=== PATIENT | male | born 1960 | race Caucasian/White ===

== ENCOUNTER 2018-10-26 14:03 | Inpatient (IN) | payer MEDICAID ==
[~2018-10-26] VITALS: Ht 165.1 cm; Wt 79.8 kg
--- NOTE | 2018-10-26 14:15 | NUR ---
Henrietta ledbetter in [facility] - 10/26/18 at 1747 by NIMA Consent for CTA signed
[2018-10-26 14:34] VITALS: BP_SYST 152
[2018-10-26] MEDS ORDERED: NACL 0.9% 1,000 ML IV ONE ×2 (14:39→15:45)
[2018-10-26 15:05] LABS: BASOPHILS % (AUTO) 0.3 % (0.0-2.0); HEMATOCRIT 42.7 % (36-54); HEMOGLOBIN 14.7 g/dL (14.0-18.0); LYMPHOCYTES # (AUTO) 2.5 K/uL (1.0-5.5); MEAN CORPUSCULAR HEMOGLOBIN 31 pg (27-31); MEAN CORPUSCULAR HGB CONC 34 % (32-36); MEAN CORPUSCULAR VOLUME 91 fL (79.0-98.0); MONOCYTES % (AUTO) 8.3 % (1.7-9.3); NEUTROPHILS # (AUTO) 2.9 K/uL (1.8-7.7); NEUTROPHILS % (AUTO) 48.4 % (40.0-70.0); PLATELET COUNT (AUTO) 218 K/uL (130-430); RED BLOOD CELL COUNT(AUTO) 4.72 MIL/uL (4.2-6.2); RED CELL DISTRIBUTION WIDTH 12.8 % (9.0-15.0)
[2018-10-26 15:06] LABS: EOSINOPHILS # (AUTO) 0.1 K/uL (0.0-0.4); MONOCYTES # (AUTO) 0.5 K/uL (0.0-1.0)
--- NOTE | 2018-10-26 15:13 | NUR ---
Patient to ER bed 5 to gown for evaluation. Side rails up. Report given to Gilberto NESS.
[2018-10-26 15:14] LABS: CALCIUM 8.7 mg/dL (8.4-11.0); CREATININE 0.68 mg/dL (0.55-1.30); POTASSIUM 4.2 mmol/L (3.5-5.1)
[2018-10-26 15:15] LABS: PROTHROMBIN TIME 10.1 SECS (9.5-12.5)
[2018-10-26 15:19] LABS: ALBUMIN 3.6 g/dL (3.4-4.8); TOTAL BILIRUBIN 0.6 mg/dL (0.0-1.0)
--- NOTE | 2018-10-26 15:30 | NUR ---
ER at bedside examining patient.
--- NOTE | 2018-10-26 15:32 | NUR ---
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
[2018-10-26] MEDS ORDERED: MORPHINE 4 MG/ML INJ. SYRINGE IVP ONE (15:45)
--- NOTE | 2018-10-26 17:15 | NUR ---
Consent for CTA signed
[2018-10-26] MEDS ORDERED: IOHEXOL 100 ML IV ONE (17:43)
--- NOTE | 2018-10-26 17:46 | NUR ---
Patient transported to radiology via ambulation, accompanied by rad staff.
--- NOTE | 2018-10-26 18:00 | NUR ---
Returned from radiology, back to [facility].
--- NOTE | 2018-10-26 18:24 | NUR ---
Patient will be admitted to care of Dr. Chinchilla. Admitted to Med Surg unit. Will go to room 133A. Summary report printed. Report will be given at bedside.
[2018-10-26] MEDS ORDERED: MORPHINE 4 MG/ML INJ. SYRINGE IVP PRN (18:30)
[2018-10-26] MEDS ORDERED: ACETAMINOPHEN 325 MG TABLET PO PRN (18:30)
[2018-10-26] MEDS ORDERED: METOCLOPRAMIDE HCL 10 MG/2 ML VIAL IVP PRN (18:30)
[2018-10-26] MEDS ORDERED: ONDANSETRON HCL 4 MG/2 ML VIAL IVP PRN (18:30)
[2018-10-26 18:39] LABS: BILIRUBIN,URINE NEGATIVE (NEGATIVE); BLOOD, URINE NEGATIVE (NEGATIVE); CLARITY/URINE CLEAR (CLEAR); COLOR,URINE YELLOW (YELLOW); GLUCOSE,URINE 1+ (NEGATIVE); KETONES,URINE NEGATIVE (NEGATIVE); LEUKOCYTE ESTERASE ,URINE NEGATIVE (NEGATIVE); NITRITE, URINE NEGATIVE (NEGATIVE); PROTEIN URINE NEGATIVE (NEGATIVE); UROBILINOGEN,URINE 0.2 (0.2-1.0)
--- NOTE | 2018-10-26 18:45 | NUR ---
ADMIT NOTE Received pt from ER to the floor with a diagnosis of ACUTE PANCREATITIS. Admission process initiated. patient oriented to pain management, safety and call light-teach back done.
[2018-10-26 19:00] VITALS: BP_SYST 150
--- NOTE | 2018-10-26 19:02 | NUR ---
Opening Note pt resting in bed, A&Ox4, no acute distress noted, IV site clean, dry, and intact, respirations even and unlabored on room air, pt educated on use of call light and asked to call for assistance, pt verbalized understanding, call light in reach, bed in low and locked position, bed alarm on, fall and aspiration precautions in place.
[2018-10-26] MEDS: D5NS 1,000 ML IV SCH (19:20)
--- NOTE | 2018-10-26 19:31 | NUR ---
Opening notes Received report. Patient resting in bed, talking to family. No signs of distress noted. Breathing is even and unlabored. Patient complains of 3/10 pain. Does not want any medication at this time. IV is patent and intact infusing fluids. No other needs at this time. Call light with the patient. Safety precautions in place.
--- NOTE | 2018-10-26 19:31 | NUR ---
Closing Note bedside SBAR report given to receiving RN, pt resting in bed, A&Ox4, no acute distress noted, pt reports pain is controlled, family at bedside, fall and aspiration precautions in place, care endorsed.
[2018-10-26 19:37] VITALS: BP_SYST 150
[2018-10-26] MEDS: MORPHINE 4 MG/ML INJ. SYRINGE IVP PRN (20:48)
--- NOTE | 2018-10-26 20:48 | NUR ---
Pain Patient complain of 7/10 pain to left abdomen. Educated the action and side effects of medications. Patient verbalized understanding and tolerated well. No signs of allergic reaction noted. Call light with the patient. Safety precautions in place.
--- NOTE | 2018-10-26 22:30 | NUR ---
Resting Patient resting comfortably in bed, talking to son. No signs of distress noted. Breathing is even and unlabored. No complaints of pain or discomfort. IV is patent and intact infusing fluids. Emptied 400 ml of clear yellow urine from urinal. No other needs at this time. Call light with the patient. Safety precautions in place.
--- NOTE | 2018-10-27 | NUR ---
Resting Patient resting comfortably in bed, talking to son. No signs of distress noted. Breathing even and unlabored. No complaints of pain or discomfort at this time. Call light with the patient. Safety precautions in place.
[2018-10-27 00:15] VITALS: BP_SYST 150
--- NOTE | 2018-10-27 02:18 | NUR ---
Sleeping Patient sleeping at this time. No signs of distress noted. Breathing is even and unlabored. IV is patent and intact infusing fluids. Call light with the patient. Safety precautions in place.
[2018-10-27] MEDS: D5NS 1,000 ML IV SCH ×3 (03:08→19:36)
--- NOTE | 2018-10-27 03:16 | NUR ---
IVF/Void Patient ambulated to bathroom to void, steady gait noted. Patient back in bed, resting comfortably. No signs of distress noted. Denies any pain at this time. New bag of IV fluids hung and infusing well. No other needs. Call light with the patient. Safety precautions in place.
--- NOTE | 2018-10-27 06:39 | NUR ---
Closing notes Patient sleeping comfortably in bed. No signs of distress noted. Breathing is even and unlabored. Denies any pain or discomfort at this time. IV is patent and intact, infusing fluids. All needs met throughout the shift. Call light with the patient. Safety precautions in place. Will endorse care to day shift RN.
--- NOTE | 2018-10-27 07:38 | NUR ---
OPENING NOTE Patient resting in the bed. No acute distress. AAO x 4. C/o abd pain, will give pain med as ordered. Skin warm ans dry to touch. IV intact to LAC, no redness, no swelling, no drainage. On D5 NS at 125ml/hr, infusing well. Instructed patient to use call light when needs help, verbally understanding. Safety measure maintained. Call light within reached. Bed locked in low position, side rails up, bed alarm on. Call light within reached. Will continue to monitor.
[2018-10-27 07:55] VITALS: BP_SYST 133
[2018-10-27] MEDS: MORPHINE 4 MG/ML INJ. SYRINGE IVP PRN ×2 (08:02→19:38)
[2018-10-27] MEDS ORDERED: DEXTROSE 50% JECT 50 ML DISP.SYRIN IVP PRN (09:00)
[2018-10-27] MEDS ORDERED: INSULIN REGULAR, HUMAN 100 UNITS/ML, 10 ML VIAL (novoLIN R) SUBCUT PRN (09:00)
--- NOTE | 2018-10-27 09:05 | NUR ---
SEEN AND EXAMINED TO ISIDRO GONZALES.
[2018-10-27 09:31] LABS: CALCIUM 7.7 mg/dL (8.4-11.0); CREATININE 0.7 mg/dL (0.55-1.30); POTASSIUM 3.4 mmol/L (3.5-5.1)
[2018-10-27 09:35] LABS: ALBUMIN 3.3 g/dL (3.4-4.8); TOTAL BILIRUBIN 0.6 mg/dL (0.0-1.0)
--- NOTE | 2018-10-27 11:12 | NUR ---
DD=[id number] Patient refused insulin. Patient remains on NPO status. IV intact to LAC, continue on D5 NS at 125ml/hr, infusing well. Family at bedside. Safety measure maintained. Call light within reached. Continue to monitor.
[2018-10-27 12:10] VITALS: BP_SYST 135
--- NOTE | 2018-10-27 13:40 | NUR ---
US OF ABD DONE AT BEDSIDE.
--- NOTE | 2018-10-27 14:00 | NUR ---
Transfer of care: Received patient from THI Nicholas. Stable. Uzbek Speaking. Family at bedside. Safety measures in placed. Call light within reach.
--- NOTE | 2018-10-27 14:25 | NUR ---
HANDS OFF Report given to THI Abrams at bedside. Patient in stable condition. IV intact, IVF infusing well. at bedside. Safety measure maintained. Call light within reached. SBAR given.
[2018-10-27 17:17] VITALS: BP_SYST 146
--- NOTE | 2018-10-27 18:00 | NUR ---
BS: Accu Check 170 mg/dl. Patient refused insulin coverage. Patient remains NPO.
--- NOTE | 2018-10-27 19:30 | NUR ---
Bedside report obtained from day shift nurse. Pt is Croatian Speaking and fully awake, alert and oriented x4. Pt c/o 8/10 abdominal pain. Will medicate pt for pain. IVF of D5NS is infusing well in LAC at 125ml/hr without any signs of infiltration. Skin is warm and dry to touch. No signs or symptoms of hypoglycemia or hyperglycemia noted. Fall and safety precautions are in place.
--- NOTE | 2018-10-27 19:30 | NUR ---
Closing notes: Patient resting on bed. Stable. Remains NPO. Call light within reach. Safety measures in placed. Call light within reach. Report given to THI Smith.
--- NOTE | 2018-10-27 19:38 | NUR ---
Morphine 4mg was given IV for c/o abdominal pain. Fall and safety precautions are in place. Call li8ght is with pt and bed is in the lowest and locked positions. Pt was instructed to call for assistance before getting OOB if he feels dizzy or drowsy and pt verbalized understanding. is at the bedside. Hungarian interpretation was done by student nurse.
[2018-10-27 20:00] VITALS: BP_SYST 147
--- NOTE | 2018-10-27 22:00 | NUR ---
Pt is resting comfortably in bed without any distress noted. IVF is infusing well. Fall and safety precautions are in place.
--- NOTE | 2018-10-27 23:47 | NUR ---
Accucheck 171 and pt refused sliding scale Insulin coverage. Skin remains warm and dry to touch. IVF is infusing well in LAC. Fall and safety precautions are in place.
[2018-10-28 00:17] VITALS: BP_SYST 147
--- NOTE | 2018-10-28 01:30 | NUR ---
Pt is sleeping comfortably in bed without any respiratory distress noted. IVF is infusing well in LAC. Fall and safety precautions are in place.
--- NOTE | 2018-10-28 03:30 | NUR ---
Pt is sleeping comfortably in bed. IVF is infusing well in [facility]. Fall and safety precautions are in place.
[2018-10-28] MEDS: D5NS 1,000 ML IV SCH ×3 (04:05→23:26)
[2018-10-28 08:00] VITALS: BP_SYST 152
--- NOTE | 2018-10-28 12:04 | NUR ---
blood sugar checked 180- pt is refusing insulin at this time. pt educated on insulin and hyperglycemia s/s
[2018-10-28 12:06] VITALS: BP_SYST 156
--- NOTE | 2018-10-28 13:19 | NUR ---
pt in bed awake at bedside, no distress noted, no needs at this time.
[2018-10-28 16:40] VITALS: BP_SYST 144
--- NOTE | 2018-10-28 17:04 | NUR ---
PATIENT RESTING: Patient resting quietly. No acute distress noted. Vital signs within normal range.
--- NOTE | 2018-10-28 18:15 | NUR ---
blood sugar 230 pt refusing insulin at this time, pt also requesting to stop iv fluids for now. pt stated he will let me know when he would like to be reconnected.
--- NOTE | 2018-10-28 19:01 | NUR ---
CLOSING NOTE ALL NEEDS MET THROUGH SHIFT, SAFETY MAINTAINED, WILL ENDORSE CARE TO THERAPY AIDE.
--- NOTE | 2018-10-28 19:30 | NUR ---
ROUNDS PATIENT IN BED, AWAKE, ALERT. ORIENTED, VITALS STABLE, DENIES ANY PAIN AND DISCOMFORT AT THIS TIME. ASSESSMENT DONE AND DOCUMENTED. SEE FLOWSHEET. NEEDS ATTENDED TO. SAFETY AND FALL PRECAUTION MEASURES IN PLACED. BED IN LOW AND LOCKED POSITION. CALL LIGHT PLACED WITHIN REACH.
--- NOTE | 2018-10-28 22:10 | NUR ---
ROUNDS PATIENT ASLEEP, RESPIRATIONS EVEN AND UNLABORED, WILL CONTINUE TO MONITOR.
--- NOTE | 2018-10-29 00:14 | NUR ---
PATIENT RESTING: Patient resting quietly. No acute distress noted. Vital signs within normal range.
[2018-10-29 00:52] VITALS: BP_SYST 141
--- NOTE | 2018-10-29 02:06 | NUR ---
ROUNDS PATIENT ASLEEP, VITALS STABLE, NO PAIN AT THIS TIME. WILL CONTINUE TO MONITOR.
--- NOTE | 2018-10-29 04:10 | NUR ---
PATIENT RESTING: Patient resting quietly. No acute distress noted. Vital signs within normal range.
--- NOTE | 2018-10-29 06:57 | NUR ---
CLOSING NOTES PATIENT AWAKE, VITALS STABLE, DENIES ANY PAIN AT THIS TIME. ALL NEEDS ATTENDED TO. SAFETY AND FALL PRECAUTION MEASURES MAINTAINED. CALL LIGHT PLACED WITHIN REACH.
--- NOTE | 2018-10-29 07:47 | NUR ---
OPENING NOTE PT AWAKE ALERT, CALL LIGHT WITHIN REACH, REORIENTED TO CALL LIGHT USE, FAMILY AT BEDSIDE, BED ALARM IN PLACE WITH BED IN THE LOWEST POSITION.
[2018-10-29 08:00] VITALS: BP_SYST 139
[2018-10-29] MEDS: D5NS 1,000 ML IV SCH ×2 (08:59→10:24)
--- NOTE | 2018-10-29 09:02 | NUR ---
NEW IVF D5NS INFUSING AT THIS TIME. NO DISTRESS NOTED, PT DENIES ANY PAIN.
[2018-10-29] MEDS ORDERED: GLUXR500 PO (11:07)
--- NOTE | 2018-10-29 12:10 | NUR ---
BLOOD SUGAR CHECKED, PT REFUSING INSULIN AT THIS TIME.
[2018-10-29 12:54] VITALS: BP_SYST 147
--- NOTE | 2018-10-29 13:27 | NUR ---
D/C Patient Patient given medication reconciliation form and D/C instructions. Exit Care provided. Patient verbalized understanding. MD discussed with patient the results and treatment provided. Ambulatory with steady gait for discharge to home. Patient in stable condition, ID band removed. IV catheter removed, intact and dressing applied, no active bleeding. Rx of METFORMIN given. Patient educated on pain management. All belongings sent with patient.
== END 2018-10-29 13:26 | disposition home or self-care (01) | DRG 282 ==
LOC: SED 14:03 → SMU 17:26
PROVIDERS: ADMIT Internal Medicine Hospice and Palliative Medicine; ATTEND Internal Medicine Hospice and Palliative Medicine
DX: K85.90 Acute pancreatitis without necrosis or infection, unspecified (principal); E11.9 Type 2 diabetes mellitus without complications
CPT/HCPCS: 36415; 76700-TC; 80053; 81003; 82962; 83036; 83690-TC; 84478-TC; 85025; 85610-TC; 96361; 96374; 99285; J1815; J2270; J7042; Q9967